=== PATIENT | female | born 1965 | race Caucasian/White ===

== ENCOUNTER 2019-06-08 15:32 | Inpatient (IN) ==
[~2019-06-08 15:32] MED LIST: NARCAN ONE; NS 1,000 ML ONE; ROMAZICON ONE
[2019-06-08] MEDS ORDERED: NS 1,000 ML IV ONE ×2 (15:36→17:20)
[2019-06-08] MEDS ORDERED: NARCAN IV ONE (15:36)
[2019-06-08] MEDS ORDERED: ROMAZICON IV ONE (15:36)
--- NOTE | 2019-06-08 15:51 | EKG Report ---
Test Performed on : 06/08/2019 3:31:45 PM Test Reason : OD Blood Pressure : / mmHG Vent. Rate : 137 BPM Atrial Rate : 137 BPM P-R Int : 120 ms QRS Dur : 066 ms QT Int : 320 ms P-R-T Axes : 080 075 077 degrees QTc Int : 483 ms Sinus tachycardia. with fusion complexes Nonspecific ST and T wave abnormality Abnormal ECG When compared with ECG of 24-FEB-2019 13:30, fusion complexes are now present Vent. rate has increased BY 50 BPM T wave inversion now evident in Lateral leads Unconfirmed Result
[2019-06-08 16:00] LABS: BILIRUBIN URINE NEGATIVE (NEGATIVE); BLOOD URINE NEGATIVE (NEGATIVE); CLARITY CLEAR (CLEAR); COLOR YELLOW; KETONE URINE NEGATIVE (NEGATIVE); LEUKOCYTES URINE NEGATIVE (NEGATIVE); NITRITE URINE NEGATIVE (NEGATIVE); PROTEIN URINE 1+(30 mg/dL) mg/dL (NEGATIVE); SP GRAVITY URINE 1.015; UROBILINOGEN URINE NORMAL
[2019-06-08 16:03] LABS: URINE SOURCE CATH
[2019-06-08 16:05] LABS: URINE BACTERIA 1+ /HFP; URINE CAST NONE SEEN /LPF; URINE CRYSTAL NONE SEEN /HPF; URINE EPITHELIAL CELLS >10 /HPF (<10); URINE RBC <10 /HPF (<10); URINE WBC <10 /HPF (<10); URINE YEAST NONE SEEN /HPF
[2019-06-08 16:05] LABS: BASO# 0.01 X1000 (0.0-0.2); BASO% 0.3 % (0.0-0.8); EOS# 0.03 X1000 (0.0-0.7); EOS% 0.8 % (0.0-10.0); HEMATOCRIT 34.8 % (37.0-47.0); HEMOGLOBIN 11.3 g/dL (12.0-16.0); MCH 30.1 PG (27-31); MCHC 32.5 g/dL (33-37); MCV 92.8 FL (81-99); MONO# 0.36 X1000 (0.11-0.59); MONO% 9.9 % (1.7-9.3); MPV 8.9 FL (7.4-10.4); NEUT# 1.64 X1000 (1.4-6.5); PLT 172 X1000 (130-400); RBC 3.75 XMIL (4.2-5.4); RDW 12.5 % (11.5-14.5); WBC 3.64 X1000 (4.8-10.8)
--- NOTE | 2019-06-08 16:05 | Diag Imaging Result Doc PS360 ---
EXAM: CHEST-1 VIEW - 06/08/2019 HISTORY: OD TECHNIQUE: Portable chest one view COMPARISON: 07/22/2014 FINDINGS: Heart size is normal. There is a right midlung granuloma from old granulomatous disease similar to prior. Lungs otherwise appear clear. There is no pleural effusion or pneumothorax identified. IMPRESSION: No evidence of acute disease. Electronically signed by Marco Antonio Metz 06/08/2019 4:02 PM
[2019-06-08] MEDS ORDERED: ATIVAN IV ONE ×2 (16:18→23:55)
[2019-06-08 16:19] LABS: ACETAMINOPHEN 3.1 ug/mL (10-30); AGAP 10; ALBUMIN 3.3 g/dL (3.5-5.0); ALKALINE PHOSPHATASE 83 U/L (32-104); BUN 9 mg/dL (8-22); CALCIUM 7.4 mg/dL (8.8-10.2); CHLORIDE 114 mmol/L (98-107); COSMO 289; CREATININE 0.6 mg/dL (0.5-0.9); ESTIMATED GFR > 60; GLUCOSE 219 mg/dL (70-104); GOT 15 U/L (10-30); GPT 9 U/L (10-36); POTASSIUM 3.2 mmol/L (3.5-5.1); SALICYLATES < 3.00 mg/dL (3-10); SODIUM 142 mmol/L (136-145); TCO2 18 mmol/L (25-35); TOTAL PROTEIN 4.6 g/dL (6.3-8.3)
[2019-06-08 16:24] LABS: BE -4.6 mmoll (-3.0-3.0); BLOOD TYPE ARTERIAL; HCO3-(ACT) 21.1 mmoll (20.0-26.0); METHB 0.6 % (0.0-1.5); O2(CT) 15.3 mL/dL (15.0-23.0); PCO2(98.6) 36 mmHg (35-45); PO2(98.6) 126 mmHg (60-100); SAMPLE BLOOD; SAO2 97.5 % (95.0-100.0); THB 12.1 g/dL (11.5-17.4); pH(98.6) 7.36 (7.35-7.45)
[2019-06-08 16:28] LABS: ALLEN TEST NO; MODALITY CANNULA
[2019-06-08 16:29] LABS: O2HB 88.8 % (95.0-99.0)
[2019-06-08 16:42] LABS: FREE T4 1.21 ng/dL (0.93-1.70); TSH 1.22 uIUmL (0.27-4.20)
[2019-06-08] MEDS ORDERED: LEVOPHED 8 MG in D5 1/2 NS 250 ML IV SCH (18:00)
[2019-06-08] MEDS ORDERED: KLOR-CON PO ONE ×2 (18:08→20:18)
--- NOTE | 2019-06-08 18:08 | PROVIDER DOCUMENTATION ---
This chart was entered by Joann Campbell Scribe, acting as scribe for Carl Solitario MD. [id number] Abuse/Overdose - General Stated Complaint: OVERDOSE Time Seen by Provider: 06/08/19 15:32 Source: EMS Allergies/Adverse Reactions: Allergies Allergy/AdvReac Type Severity Reaction Status Date / Time aspirin AdvReac NAUSEA/VOMI Verified 08/02/14 20:10 TING Home Medications: Home Medication List Medication Instructions Recorded Confirmed Last Taken Type Hydrocodone/Acetaminophen [[place] 1 each PO 4XDAY PRN PRN 07/22/14 06/08/19 08/02/14 19:45 History 7.5-325 Tablet] Amitriptyline HCl 50 mg PO QHS 06/08/19 06/08/19 Unknown History Cyclobenzaprine [Flexeril] 10 mg PO TID 06/08/19 06/08/19 Unknown History Quetiapine Fumarate [Seroquel] 25 mg PO QHS 06/08/19 06/08/19 Unknown History Ranitidine HCl 1 tab PO BID 06/08/19 06/08/19 Unknown History - History of Present Illness-Drug/Alcohol Nature of Presenting Problem: 54 y/o female is brought to the ED via EMS after fiance found the patient unresponsive. EMS states empty bottle of Seroquel as well as hydrocodone was with the patient as well as 3 other prescription bottles which still had pills. EMS states 2 mg Narcan give en route with some response. Pt later stated that she was upset and suicidal about having to give away her pet ferret due to upcoming surgery. This episode of drinking or use began:: just prior to arrival Severity: reports: moderate Situational problems related to:: reports: other (had to give pet away) Psychiatric Complaints: reports: anxiety, depressed Any injuries associated with this episode of intoxication?: No Similar Symptoms Previously?: No Recently seen or treated by another doctor?: No - Substance Abuse Substance Use: reports: denies - Overdose Intentional drug overdose?: Yes List substance(s) ingested.: Seroquel, hydrocodone How did the ingestion/other suicidal act come to attention?: anitha called 911 Suicide Risk Assessment: depressed, no social supports, organized plan Clinician's estimation of suicide risk?: high risk Review of Systems - Adult - REVIEW OF SYSTEMS - ADULT ROS:: unobtainable per condition (The patient is unresponsive) Constitutional: reports: see HPI Eyes: reports: see HPI Ears, Nose, Mouth & Throat: reports: see HPI Cardiovascular: reports: see HPI Respiratory: reports: see HPI Gastrointestinal: reports: see HPI Genitourinary: reports: see HPI Musculoskeletal: reports: see HPI Integumentary: reports: see HPI Neurological: reports: see HPI Psychiatric: reports: see HPI, anxiety, depression, suicidal thoughts Endocrine: reports: see HPI Hematologic/Lymphatic: reports: see HPI Allergic/Immunologic: reports: see HPI All Other Systems: Reviewed and Negative Past History - Adult - PAST MEDICAL HISTORY-ADULT Review of Records: reports: Old Records Reviewed, Nursing Assessment Review, Medications Reviewed, Social history reviewed & non-contributory. Major Childhood Illnesses: reports: denies history Cardiovascular: reports: denies history Respiratory: reports: denies history Gastrointestinal: reports: cholelithiasis Obstetrical/Gynecological: reports: denies history (partial hysterectomy) Genitourinary: reports: denies history Musculoskeletal: reports: denies history Neurological: reports: denies history Psychiatric: reports: denies history Endocrine/Immune: reports: denies history Other Conditions: reports: denies history - PRIOR SURGERIES/PROCEDURES Surgical/Procedure History: reports: recent surgery (07/23/2014) - IMMUNIZATION STATUS Childhood Immunizations: UTD Flu Vaccine: See Nurse Assessment - FAMILY HISTORY Family History: reviewed, not pertinent - SOCIAL HISTORY Smoking: cigarettes Living Situation: family Physical Exam-General - PHYSICAL EXAM-ADULT Exam Limited by: patient is mumbling but not making sense or following commands well Initial Vital Signs Reviewed: Yes - CONSTITUTIONAL General Appearance: other (lethargic, not compliant with exam) - EYES Eyes: PERRL/EOMI - HEAD, EARS, NOSE, MOUTH & THROAT HENMT: normocephalic/atraumatic, moist mucous membranes - NECK Neck: non-tender, full range of motion, supple, normal inspection - RESPIRATORY Respiratory: chest non-tender, lungs clear, normal breath sounds, no pleuratic chest pain, no respiratory distress, no accessory muscle use, rhonchi (bilateral) - CARDIOVASCULAR Cardiovascular: normal peripheral pulses, no edema, no gallop, no JVD, no murmur , tachycardia - GASTROINTESTINAL (ABDOMEN) Abdominal Exam: normal bowel sounds, non tender, soft - LYMPHATIC Lymphatic: no adenopathy - MUSCULOSKELETAL Back Exam: normal inspection Extremity: normal range of motion DTR: bicep (R): 4+, bicep (L): 4+, knee (R): 4+, knee (L): 4+ - SKIN Integumentary: normal color, normal turgor - 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, grossly normal, no motor/sensory deficits - PSYCHIATRIC Psych/Mental Status: depressed affect, tearful Progress - PLAN OF CARE/RESULTS Progress/Plan/Lab Results: Vital Signs - 8 hr 06/08/19 15:24 06/08/19 15:49 06/08/19 16:06 Temperature 94.1 F L Pulse Rate 124 H 131 H Respiratory Rate 16 24 Blood Pressure 78/62 128/66 O2 Sat by Pulse Oximetry 96 98 06/08/19 16:40 06/08/19 17:30 Temperature 95.5 F L Pulse Rate 135 H 135 H Respiratory Rate 18 Blood Pressure 120/57 101/77 O2 Sat by Pulse Oximetry 98 95 Laboratory Results - last 24 hr 06/08/19 06/08/19 06/08/19 15:35 15:44 15:45 WBC RBC Hgb Hct MCV MCH MCHC RDW Std Deviation Plt Count MPV Immature Gran % (Auto) Neut % (Auto) Lymph % (Auto) [place] % (Auto) Eos % (Auto) Baso % (Auto) Immature Gran # (Auto) Neut # (Auto) Lymph # (Auto) [place] # (Auto) Eos # (Auto) Baso # (Auto) Specimen Type Sample Site pH pCO2 pO2 HCO3 Base Excess Oxyhemoglobin ABG O2 Sat (Calculated) ABG O2 Saturation ABG Carboxyhemoglobin ABG Methemoglobin Jaden Test A-a O2 Difference Total Hemoglobin Lactate Liter Flow Blood Gas Modality FiO2 % Sodium Potassium Chloride Carbon Dioxide Anion Gap BUN Creatinine Estimated GFR/1.73 m2 BUN/Creatinine Ratio Glucose POC Glucose 173 H D Calculated Osmolality Calcium Total Bilirubin AST ALT Alkaline Phosphatase Ammonia Troponin T < 0.010 Total Protein Albumin Globulin Albumin/Globulin Ratio TSH Free T4 Urine Source CATH Urine Color YELLOW Urine Clarity CLEAR Urine pH 7.0 Ur Specific [place] 1.015 Urine Protein 1+(30 mg/dL) A Urine Ketones NEGATIVE Urine Blood NEGATIVE Urine Nitrite NEGATIVE Urine Bilirubin NEGATIVE Urine Urobilinogen NORMAL Urine Microscopic RBC <10 Urine WBC NEGATIVE Urine Microscopic WBC <10 Ur Epithelial Cells >10 A Urine Crystals NONE SEEN Urine Bacteria 1+ Urine Casts NONE SEEN Urine Yeast NONE SEEN Urine Glucose 2+(250 mg/dL) A Salicylates Acetaminophen Plasma/Serum Ethyl Alc 06/08/19 06/08/19 06/08/19 15:45 15:45 15:45 WBC 3.64 L RBC 3.75 L Hgb 11.3 L Hct 34.8 L MCV 92.8 MCH 30.1 MCHC 32.5 L RDW Std Deviation 12.5 Plt Count 172 MPV 8.9 Immature Gran % (Auto) 0.0 Neut % (Auto) 45.0 Lymph % (Auto) 44.0 [place] % (Auto) 9.9 H Eos % (Auto) 0.8 Baso % (Auto) 0.3 Immature Gran # (Auto) 0.00 Neut # (Auto) 1.64 Lymph # (Auto) 1.60 [place] # (Auto) 0.36 Eos # (Auto) 0.03 Baso # (Auto) 0.01 Specimen Type Sample Site pH pCO2 pO2 HCO3 Base Excess Oxyhemoglobin ABG O2 Sat (Calculated) ABG O2 Saturation ABG Carboxyhemoglobin ABG Methemoglobin Jaden Test A-a O2 Difference Total Hemoglobin Lactate Liter Flow Blood Gas Modality FiO2 % Sodium 142 Potassium 3.2 L Chloride 114 H Carbon Dioxide 18 L Anion Gap 10 BUN 9 Creatinine 0.6 Estimated GFR/1.73 m2 > 60 BUN/Creatinine Ratio 15 Glucose 219 H POC Glucose Calculated Osmolality 289 Calcium 7.4 L Total Bilirubin 0.20 AST 15 ALT 9 L Alkaline Phosphatase 83 Ammonia Troponin T Total Protein 4.6 L Albumin 3.3 L Globulin 1.0 Albumin/Globulin Ratio 3.0 TSH Free T4 Urine Source Urine Color Urine Clarity Urine pH Ur Specific [place] Urine Protein Urine Ketones Urine Blood Urine Nitrite Urine Bilirubin Urine Urobilinogen Urine Microscopic RBC Urine WBC Urine Microscopic WBC Ur Epithelial Cells Urine Crystals Urine Bacteria Urine Casts Urine Yeast Urine Glucose Salicylates < 3.00 L Acetaminophen 3.1 L Plasma/Serum Ethyl Alc 06/08/19 06/08/19 06/08/19 15:45 16:00 16:08 WBC RBC Hgb Hct MCV MCH MCHC RDW Std Deviation Plt Count MPV Immature Gran % (Auto) Neut % (Auto) Lymph % (Auto) [place] % (Auto) Eos % (Auto) Baso % (Auto) Immature Gran # (Auto) Neut # (Auto) Lymph # (Auto) [place] # (Auto) Eos # (Auto) Baso # (Auto) Specimen Type ARTERIAL Sample Site R BRACHIAL pH 7.36 pCO2 36 pO2 126 H HCO3 21.1 Base Excess -4.6 L Oxyhemoglobin 88.8 L* ABG O2 Sat (Calculated) 15.3 ABG O2 Saturation 97.5 ABG Carboxyhemoglobin 8.20 H* ABG Methemoglobin 0.6 Jaden Test NO A-a O2 Difference 29.0 Total Hemoglobin 12.1 Lactate 2.40 H Liter Flow 2.0 Blood Gas Modality [place] FiO2 % 28.0 Sodium Potassium Chloride Carbon Dioxide Anion Gap BUN Creatinine Estimated GFR/1.73 m2 BUN/Creatinine Ratio Glucose POC Glucose Calculated Osmolality Calcium Total Bilirubin AST ALT Alkaline Phosphatase Ammonia 12 Troponin T Total Protein Albumin Globulin Albumin/Globulin Ratio TSH 1.22 Free T4 1.21 Urine Source Urine Color Urine Clarity Urine pH Ur Specific [place] Urine Protein Urine Ketones Urine Blood Urine Nitrite Urine Bilirubin Urine Urobilinogen Urine Microscopic RBC Urine WBC Urine Microscopic WBC Ur Epithelial Cells Urine Crystals Urine Bacteria Urine Casts Urine Yeast Urine Glucose Salicylates Acetaminophen Plasma/Serum Ethyl Alc Orders Category Date Time Status Admit - [facility] Routine AdmDCTranf 06/08/19 18:08 Active Activity - Strict Bedrest ORDERED Care 06/08/19 18:10 Active Call Admitting on Arrival AT ADMISSION Care 06/08/19 18:10 Active Finger Stick Blood Sugar (ED) DIRECTED Care 06/08/19 16:04 Active Neurological Check Q2H Care 06/08/19 18:10 Active Nursing- Obtain EKG ONCE Care 06/08/19 15:33 Active Restraint Initiate NonViolent ONCE Care 06/08/19 16:31 Active Vital Signs Order ROUTINE Care 06/08/19 18:10 Active Z-Document. for Tele Applied ORDERED Care 06/08/19 18:10 Active Heart Healthy Diet Diet 06/08/19 18:10 Active CHEST-1 VIEW [RAD] Stat Exams 06/08/19 15:33 Completed ABG [RESP] Routine Lab 06/08/19 16:00 Completed ACETAMINOPHEN [TDM] Stat Lab 06/08/19 15:45 Completed ACETAMINOPHEN [TDM] Timed Lab 06/08/19 18:50 Received ACETAMINOPHEN [TDM] Timed Lab 06/08/19 22:30 Uncollected ALCOHOL BLOOD Stat Lab 06/08/19 15:45 Completed AMMONIA [CHEM] Stat Lab 06/08/19 16:08 Completed CBC WITH ELECTRONIC DIFF [HEME] Stat Lab 06/08/19 15:45 Completed COMPREHENSIVE METABOLIC PANEL [CHEM] Stat Lab 06/08/19 15:45 Completed FREE T4 Stat Lab 06/08/19 15:45 Completed SALICYLATES [TDM] Stat Lab 06/08/19 15:45 Completed TROPONIN T Stat Lab 06/08/19 15:45 Completed TSH Stat Lab 06/08/19 15:[address] W/POSS RFLX CULT [URINALYSIS] Stat Lab 06/08/19 15:44 Completed 0.9% Sodium Chloride Inj [Ns] 1,000 ml Med 06/08/19 15:25 Discontinued .ROUTE As directed 0.9% Sodium Chloride Inj [Ns] 1,000 ml Med 06/08/19 17:20 Discontinued IV 125 mls/hr 0.9% Sodium Chloride Inj [Ns] 1,000 ml Med 06/08/19 18:30 Active IV 125 mls/hr 0.9% Sodium Chloride Inj [Ns] 1,000 ml Med 06/08/19 15:36 Discontinued IV 999 mls/hr Dextrose 5%-0.45% NaCl Inj [D5 1/2 Ns] 250 ml Med 06/08/19 18:00 Active Norepinephrine [Levophed] 8 mg IV As Directed mls/hr Flumazenil [Romazicon] Med 06/08/19 15:36 Discontinued 0.2 mg IV NOW ONE Flumazenil [Romazicon] Med 06/08/19 15:24 Discontinued 0.5 mg .ROUTE .STK-MED ONE Lorazepam [Ativan] Med 06/08/19 16:18 Discontinued 0.5 mg IV NOW ONE Naloxone [Narcan] Med 06/08/19 15:21 Discontinued 2 mg .ROUTE .STK-MED ONE Naloxone [Narcan] Med 06/08/19 15:36 Discontinued 2 mg IV NOW ONE Ondansetron [Zofran] Med 06/08/19 18:10 Active 4 mg PO Q6H PRN PRN Potassium Chloride E.r. [Klor-Con] Med 06/08/19 18:08 Discontinued 20 meq PO NOW ONE Oxygen Device Routine Oth 06/08/19 18:10 Active Telemetry [OM.EQ] Routine Oth 06/08/19 18:10 Active EKG [EKG] Stat Ther 06/08/19 15:33 Draft Transfer/Admit Order [TRANSFER] Routine Transfer 06/08/19 18:11 Ordered 1649: Spoke with anitha who is now in the room. He states the patient had to give her pet away today due to being unable to care for it which caused her to "snap" as well as stress about an upcoming spinal surgery. Anitha states the seroquel bottle was fairly full and he is unaware of how many hydrocodone the patient took. He states she also had 3 margaritas today. The patient is still unable to add anything 1605: Rectal temp 94.1 per nursing staff. Will apply bear hugger. Result Diagrams: 06/08/19 15:45 06/08/19 15:45 - EKG 1 Time of EKG reading by physician:: 15:31 EKG Read and Signed by:: Carl Solitario EKG Interpretation (*Must complete 3 of following elements*): Abnormal Rate: 137 Rhythm: sinus tachycardia w/fusion complexes [place]: normal ST Wave: non-specific ST changes - XRAY 1 XRAY Study: Chest Impression: Normal, See EMR Report (EXAM: CHEST-1 VIEW - 06/08/2019 HISTORY: O D TECHNIQUE: Portable chest one view COMPARISON: 07/22/2014 FINDINGS: Heart size is normal. There is a right midlung granuloma from old granulomatous disease similar to prior. Lungs otherwise appear clear. There is no pleural effusion or pneumothorax identified. IMPRESSION: No evidence of acute disease. Electronically signed by Marco Antonio Metz 06/08/2019 4:02 PM 06/08/191601 Interpreting Physician: Marco Antonio Metz MD Dictated Date/Time: 06/08/191601) - CONSULTS/PCP/HOSPITALIST Notification #1 *Consult/PCP/Hospitalist*: Dr Weinberg Time Discussed: 18:03 Reason/Comments: asked for quick admit. Consult Disposition: Admit Departure - Departure Date of Disposition Decision: 06/08/19 Time of Disposition Decision: 18:00 DIAGNOSIS: Anemia, Hypokalemia, Drug overdose, Suicidal ideation, Hypothermia, Tobacco abuse disorder Disposition: ADMITTED INPATIENT 09 Certified Medical Emergency: Emergent Condition: Fair Referrals and Follow-Ups: None,PCP [Primary Care Provider] - - Critical Care Note This patient required my direct & personal management of CC.: Yes Total Time (mins): 60 Critical Care Statement: This patient required my direct personal management to treat or rule out processes, the absence of which, could potentiallly result in sudden, clinically significant life or limb threatening deterioration. Attestation - Physician/ KHUSHBOO Attestation Patient care was provided by Advanced Practice Provider:: No The physician spent face to face time with patient:: Yes Advanced Practice Provider documentation review:: Supervising physician onsite and consulted in the evaluation and care of this patient. The physician did have a face to face encounter with the patient. This chart was documented by the indicated scribe, (Joann Campbell, Charlie) and accurately reflects the services I performed and decisions made by me, Carl Solitario MD, as attested by the provider's signature.
[2019-06-08] MEDS ORDERED: ZOFRAN PO PRN (18:10)
[2019-06-08] MEDS: NS 1,000 ML IV SCH (18:40)
[2019-06-08 19:58] LABS: UR AMPHETAMINES QUAL NONE DETECTED (NONE DETECT); UR BARBITUATES QUAL NONE DETECTED (NONE DETECT); UR BENZODIAZEPIN QUAL PRESUMPTIVE POSITIVE (NONE DETECT); UR CANNABINOIDS QUAL NONE DETECTED (NONE DETECT); UR COCAINE QUAL NONE DETECTED (NONE DETECT); UR METHADONE QUAL NONE DETECTED (NONE DETECT); UR METHAMPHETAMINE QUAL NONE DETECTED (NONE DETECT); UR OPIATES QUAL NONE DETECTED (NONE DETECT); UR OXYCODONE QUAL NONE DETECTED (NONE DETECT); UR PCP QUAL NONE DETECTED (NONE DETECT); UR PROPOXYPHENE QUAL NONE DETECTED (NONE DETECT); UR TCA QUAL PRESUMPTIVE POSITIVE (NONE DETECT)
[2019-06-08] MEDS ORDERED: CALCIUM GLUCONATE 1 GM in NS 50 ML IV ONE (20:18)
[2019-06-08] MEDS ORDERED: STERILE WATER INJ. INJ ONE (23:55)
[2019-06-08] MEDS ORDERED: GEODON IM ONE (23:55)
[2019-06-08] MEDS ORDERED: BENADRYL IV ONE (23:55)
[2019-06-09] MEDS ORDERED: ATIVAN IV ONE (00:45)
[2019-06-09] MEDS: NS 1,000 ML IV SCH (05:28)
--- NOTE | 2019-06-09 06:17 | EKG Report ---
Test Performed on : 06/09/2019 06:08:59 AM Test Reason : Drug Overdose; Tachycardia Blood Pressure : / mmHG Vent. Rate : 089 BPM Atrial Rate : 089 BPM P-R Int : 138 ms QRS Dur : 070 ms QT Int : 358 ms P-R-T Axes : 084 075 070 degrees QTc Int : 435 ms Normal sinus rhythm. Normal ECG When compared with ECG of 08-JUN-2019 15:31, (Unconfirmed) fusion complexes are no longer present Vent. rate has decreased BY 48 BPM T wave inversion no longer evident in Lateral leads Unconfirmed Result
[2019-06-09 06:35] LABS: BASO# 0.01 X1000 (0.0-0.2); BASO% 0.1 % (0.0-0.8); EOS# 0.02 X1000 (0.0-0.7); EOS% 0.2 % (0.0-10.0); HEMATOCRIT 42.5 % (37.0-47.0); HEMOGLOBIN 13.7 g/dL (12.0-16.0); IMM GRAN# 0.02 X1000 (0.0-0.04); IMM GRAN% 0.2 % (0.0-0.5); LYMPH# 1.36 X1000 (1.2-3.4); LYMPH% 13.9 % (20.5-51.1); MCHC 32.2 g/dL (33-37); MCV 93.2 FL (81-99); MONO# 0.73 X1000 (0.11-0.59); MONO% 7.5 % (1.7-9.3); MPV 9.3 FL (7.4-10.4); NEUT# 7.63 X1000 (1.4-6.5); NEUT% 78.1 % (42.2-75.2); PLT 198 X1000 (130-400); RBC 4.56 XMIL (4.2-5.4); RDW 12.8 % (11.5-14.5); WBC 9.77 X1000 (4.8-10.8)
[2019-06-09 06:48] LABS: ACETAMINOPHEN < 1.2 ug/mL (10-30); MAGNESIUM 1.9 mg/dL (1.5-2.7); SALICYLATES < 3.00 mg/dL (3-10)
[2019-06-09 06:50] LABS: AGAP 12; ALBUMIN 4.2 g/dL (3.5-5.0); ALKALINE PHOSPHATASE 109 U/L (32-104); BUN 7 mg/dL (8-22); CALCIUM 9.6 mg/dL (8.8-10.2); CHLORIDE 116 mmol/L (98-107); COSMO 294; CREATININE 0.5 mg/dL (0.5-0.9); ESTIMATED GFR > 60; GLUCOSE 94 mg/dL (70-104); GOT 22 U/L (10-30); GPT 13 U/L (10-36); POTASSIUM 4.3 mmol/L (3.5-5.1); SODIUM 149 mmol/L (136-145); TCO2 22 mmol/L (25-35); TOTAL PROTEIN 6.6 g/dL (6.3-8.3)
[2019-06-09] MEDS: NICODERM PATCH TD SCH (11:00)
[2019-06-09] MEDS: 1/2 NS 1,000 ML IV SCH ×2 (11:00→19:10)
--- NOTE | 2019-06-09 11:35 | HISTORY AND PHYSICAL ---
PRIMARY CARE PROVIDER: Ericka Velez, nurse practitioner. CHIEF COMPLAINT: Found to have overdosed with suicidal ideations and attempt. HISTORY OF PRESENT ILLNESS: Ms. Kat Galeana is a 54-year-old, female with a medical history of anxiety, GERD, peptic ulcer disease, and apparently a suicidal attempt, she states 4 years ago. She is now here, as reported by ER notes that the fiancee found her unresponsive next to a bottle of empty Seroquel and hydrocodone. There were 3 other prescription bottles but all those still had pills. She received Narcan en route, had some response, and then she later stated she was upset and suicidal about having to give away her pet ferret due to an upcoming surgery of her neck. Currently, she states she does not remember any of that. Her Tylenol level was slightly elevated at 3.1 when she first got here but dropped back down to less than 1.2. She still gets confused. Currently, vitals are stable and she has been monitored closely in the ICU. At one point, she did have restraints. She had also received multiple antipsychotic medications, anxiety medication like Ativan, Benadryl, and Geodon. Then she had reversal agents as well which included Narcan and Romazicon. Her drug screen came back positive for tricyclics and benzodiazepines. Although her Tylenol level was elevated, her opiate level was not despite the fact that it was [place] that she took. We will likely have to do a [place] consult once she is medically stable. PAST MEDICAL HISTORY: 1. GERD. 2. Peptic ulcer disease. 3. Frequent abdominal pain with vomiting. 4. Anxiety. 5. History of suicidal ideations and attempt. 6. Hypoglycemia. SURGICAL HISTORY: 1. Appendectomy. 2. Cholecystectomy. 3. Cervical neck surgery by Dr. eBnitez in the past and is apparently going to see him on Sunday of next week for another evaluation for a repeat neck surgery. 4. Bilateral tubal ligation. 5. Left shoulder surgery. SOCIAL HISTORY: Half pack per day smoker since the age of 15. No alcohol. No illicit drug use. Lives with her sister. FAMILY HISTORY: Mother had diabetes and from a hemorrhagic CVA. Father had skin cancer on his face and from pancreatic cancer. ALLERGIES: Aspirin which causes nausea and vomiting. HOME MEDICATIONS: 1. Amitriptyline 50 mg p.o. nightly. 2. Flexeril 10 mg p.o. t.i.d. 3. [place] 7.5 p.o. four times a day p.r.n. 4. Seroquel 25 mg p.o. nightly. 5. Ranitidine HCL one tablet p.o. twice daily. REVIEW OF SYSTEMS: Fourteen point review of systems are complete. All were negative except those mentioned above in the HPI. She denies any pain and admits to not remembering things. PHYSICAL EXAMINATION: VITAL SIGNS: Temperature 97.7 degrees, heart rate 88, respiratory rate 18, blood pressure 136/89, O2 saturation 100% on 2 L nasal cannula. GENERAL: Ms. Kat Galeana is a 54-year-old, female. She is in no acute distress. She is able answer most questions but is still confused. She is sitting comfortably in bed. HEENT: Atraumatic, normocephalic. Pupils equal, round, reactive to light. Extraocular movements intact. Mucous membranes are dry. NECK: Trachea midline. CARDIOVASCULAR: S1, S2. Regular rate and rhythm. No rubs, gallops, or murmurs. No lower extremity edema. There are +2 dorsalis and radial pulses. Negative JVD or carotid bruits. PULMONARY: Clear to auscultate bilateral breath sounds. No accessory muscle use or work of breathing noted. GI: Soft, nontender, nondistended. Positive bowel sounds x4. EXTREMITIES: Moves all extremities equally. Full range of motion. NEUROLOGIC: Oriented x2, disoriented to place. SKIN: Warm, dry, intact. LABORATORY DATA: White blood cells 9000, hemoglobin 13, hematocrit 42, platelet count 198,000. Sodium 149, potassium 4.3, BUN 7, creatinine 0.5, glucose 94, calcium 9.6, magnesium 1.9. Bilirubin 0.50, AST 22, ALT 13, albumin 4.2. TSH 1.22, free T4 is 1.21. ABGs on 2 L nasal cannula, 7.36, pCO2 of 36, PO2 of 126, bicarb 21, base excess -4, saturation 88%, with a lactate of 2.4. Urinalysis, 1+ protein, greater than 10 epithelial cells, 1+ bacteria, 2+ glucose. Salicylate less than 3. Acetaminophen was 3.1, then 1.2, then less than 1.2, and less than 1.2 again. Positive tricyclics; positive benzodiazepines. Alcohol was 0. IMAGING: Chest x-ray, no acute findings. EKG, QTc 483, sinus tachycardia, rate was 137. EKG this morning, rate 89, QTc 435. ASSESSMENT/PLAN: 1. Overdose on Seroquel and on [place]. Tylenol level is now back to normal. QTc is still normal on the electrocardiogram. Heart rhythm back to normal rate. We will monitor for another 24 hours. Blood pressure stable. 2. Intentional overdose and suicidal attempt. We will need to consult [facility] once she is medically stable. 3. Toxic encephalopathy secondary to overdose on medications, should start clear up with time. 4. She had hypokalemia but that was treated and resolved. 5. Anxiety. She is being monitored one-on-one at this time. Medication is being held. 6. History of gastroesophageal reflux disease and peptic ulcer disease. Currently, no medications for this right now. 7. Deep venous thrombosis prophylaxis. Sequential compression devices. 8. Tobacco abuse. Nicotine patch. 9. Hypernatremia. Intravenous fluids will be changed over to half-normal saline. 10. Hyperglycemia with a hemoglobin A1c but she is back to normal on her blood glucose levels. 11. Hypoxemia, also resolved with oxygen and her being more alert. Dictated by LEILANI Beard for Rene Chase MD cc: LEILANI Beard MD [facility]
[2019-06-09] MEDS ORDERED: TORADOL IV ONE (14:18)
[2019-06-09] MEDS ORDERED: ZOFRAN ODT PO PRN (16:44)
--- NOTE | 2019-06-09 21:43 | HISTORY AND PHYSICAL ---
ADDENDUM: Patient seen and examined by myself. Full note dictated and discussed with nurse practitioner. Patient presented to the hospital after overdosing on, I believe, Seroquel and hydrocodone. The EMS had given her Narcan with some response. We are going to place her in the ICU. Will monitor for withdrawal as well as further sedation from her overdose. Currently, her vitals are stable with temperature 95 degrees, which is actually improved from when she got to the ER, as well as her pulse at 135, BP at 101/77. Please see full note. cc: Rene Chase MD
[2019-06-10] MEDS: 1/2 NS 1,000 ML IV SCH (02:45)
[2019-06-10 06:25] LABS: BILIRUBIN URINE NEGATIVE (NEGATIVE); BLOOD URINE 3+ (NEGATIVE); CLARITY CLEAR (CLEAR); COLOR YELLOW; GLUCOSE URINE NEGATIVE (NEGATIVE); KETONE URINE NEGATIVE (NEGATIVE); LEUKOCYTES URINE NEGATIVE (NEGATIVE); NITRITE URINE NEGATIVE (NEGATIVE); PROTEIN URINE NEGATIVE (NEGATIVE); UROBILINOGEN URINE NORMAL
[2019-06-10 06:25] LABS: BASO# 0.02 X1000 (0.0-0.2); BASO% 0.3 % (0.0-0.8); EOS# 0.02 X1000 (0.0-0.7); EOS% 0.3 % (0.0-10.0); HEMOGLOBIN 13.5 g/dL (12.0-16.0); IMM GRAN# 0.02 X1000 (0.0-0.04); IMM GRAN% 0.3 % (0.0-0.5); LYMPH# 1.41 X1000 (1.2-3.4); LYMPH% 22.6 % (20.5-51.1); MCH 29.5 PG (27-31); MCHC 32.1 g/dL (33-37); MCV 91.7 FL (81-99); MONO# 0.46 X1000 (0.11-0.59); MONO% 7.4 % (1.7-9.3); MPV 9.3 FL (7.4-10.4); NEUT# 4.32 X1000 (1.4-6.5); NEUT% 69.1 % (42.2-75.2); PLT 243 X1000 (130-400); RBC 4.58 XMIL (4.2-5.4); RDW 12.8 % (11.5-14.5); WBC 6.25 X1000 (4.8-10.8)
[2019-06-10 06:29] LABS: URINE RBC TNTC /HPF (<10)
[2019-06-10 06:30] LABS: URINE EPITHELIAL CELLS <10 /HPF (<10); URINE WBC <10 /HPF (<10)
[2019-06-10 06:31] LABS: URINE BACTERIA 1+ /HFP; URINE CAST NONE SEEN /LPF; URINE CRYSTAL NONE SEEN /HPF; URINE SMALL ROUND CELLS RENAL PRESENT; URINE SOURCE CATH; URINE YEAST NONE SEEN /HPF
[2019-06-10 06:34] LABS: HEMOGLOBIN A1C 4.9 % (4.8-6.0)
[2019-06-10 06:41] LABS: AGAP 11; ALBUMIN 4.2 g/dL (3.5-5.0); ALKALINE PHOSPHATASE 108 U/L (32-104); BUN 5 mg/dL (8-22); CALCIUM 9.3 mg/dL (8.8-10.2); CHLORIDE 111 mmol/L (98-107); COSMO 286; CREATININE 0.6 mg/dL (0.5-0.9); ESTIMATED GFR > 60; GLUCOSE 101 mg/dL (70-104); GOT 24 U/L (10-30); GPT 13 U/L (10-36); MAGNESIUM 1.8 mg/dL (1.5-2.7); POTASSIUM 3.6 mmol/L (3.5-5.1); SODIUM 145 mmol/L (136-145); TCO2 23 mmol/L (25-35); TOTAL PROTEIN 6.5 g/dL (6.3-8.3)
--- NOTE | 2019-06-10 06:47 | EKG Report ---
Test Performed on : 06/10/2019 05:54:30 AM Test Reason : eval qtc Blood Pressure : / mmHG Vent. Rate : 080 BPM Atrial Rate : 080 BPM P-R Int : 112 ms QRS Dur : 068 ms QT Int : 364 ms P-R-T Axes : 066 073 072 degrees QTc Int : 419 ms Normal sinus rhythm. Normal ECG When compared with ECG of 09-JUN-2019 06:08, (Unconfirmed) No significant change was found Unconfirmed Result
[2019-06-10] MEDS: NICODERM PATCH TD SCH (08:07)
[2019-06-10 08:32] VITALS: BP 158/78
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
== END 2019-06-10 09:45 | disposition home or self-care (01) | DRG 917 ==
LOC: P.ED 15:32 → SUATTDRO 06-09 07:26 → P.ICU 06-09 07:26
PROVIDERS: ATTEND Internal Medicine